=== PATIENT | male | born 1960 | race Caucasian/White ===

== ENCOUNTER 2016-06-26 10:08 | Emergency (ER) | payer OTHER ==
--- NOTE | ~2016-06-26 | CR63 ---
[facility] A Service of [facility] & [facility] RADIOLOGY TEXT RESULTS PATIENT: LUPIS MACHADO LOCATION: [facility] : 64 UNIT #: [id number] AGE: [address]: Victor M Del Rio MD SEX: M ORDER DR: [id number] [facility] [address] [place], [place] [address] [id number] E MR#: [id number] Acc #: [id number] NAME: LUPIS MACHADO : 1960 SEX: M STUDY DATE/TIME: 06/26/2016 10:30 UNIT: [facility] ROOM: STUDY DESCRIPTION: CR Chest 2 View Attending Physician: Victor M Del Rio M.D. Ordering Physician: Victor M Del Rio M.D. Primary Care Physician: [facility] MEDICAL IMAGING REPORT This report is preliminary unless electronic signature is present EXAM 2 views chest 06/26/2016 HISTORY Cough today, fell in shower. Cough, pain in right shoulder, lower back pain. FINDINGS PA and lateral radiographs of the chest are presented. Comparison 04/03/2016. Bony structures unremarkable. Heart and mediastinum normal in size and contour. The lungs are well inflated and clear without evidence of acute infectious or inflammatory disease, pleural effusion or pneumothorax. No suspicious nodule. Calcified granuloma in the left lower lobe unchanged. Dictated by... Mumtaz Park M.D. THIS IS AN ELECTRONICALLY VERIFIED REPORT Mumtaz Park M.D. at 06/27/2016 2:37 PM GERRY/kleber TD: 06/26/2016 12:48 JOB #: [id number] MEDICAL IMAGING REPORT Page 1 of 1 COPY
--- NOTE | ~2016-06-26 | CR181 ---
[facility] A Service of [facility] & [facility] RADIOLOGY TEXT RESULTS PATIENT: LUPIS MACHADO LOCATION: [facility] : 64 UNIT #: [id number] AGE: [address]: Victor M Del Rio MD SEX: M ORDER DR: [id number] [facility] [address] [place], [place] [address] [id number] E MR#: [id number] Acc #: [id number] NAME: LUPIS MACHADO : 1960 SEX: M STUDY DATE/TIME: 06/26/2016 10:29 UNIT: [facility] ROOM: STUDY DESCRIPTION: CR Lumbar Spine 2 or 3 Views Attending Physician: Victor M Del Rio M.D. Ordering Physician: Victor M Del Rio M.D. Primary Care Physician: [facility] MEDICAL IMAGING REPORT This report is preliminary unless electronic signature is present EXAM Lumbar spine series 06/26/2016 HISTORY Cough, pain in right shoulder, lower back pain. Fell in shower. Duration today. Recently quit smoking. FINDINGS AP and two lateral views lumbar spine presented with comparison study 05/15/2010. No indication of traumatic fracture or malalignment. There is a transitional S1 vertebra. Vertebral body heights are normal. Ugnq-rq-[id number] intervertebral disc space narrowing at the L3-L4, L4-L5 levels and moderate to marked intervertebral disc space narrowing L5-S1. These disc degenerative changes have progressed in the interval from 2010. There is a approximately 5 mm degenerative retrolisthesis L5 on S1 more pronounced than in 2010 when it was approximately 3 mm. I believe this is secondary to disc and facet degenerative changes at the L5-S1 level. Moderate facet degenerative changes suggested L5-S1 and at the transitional S1-S2 level. There is stable mild lumbar levoscoliosis. Visualized bony pelvis and thoracic spine show no acute abnormalities. Visualized bowel gas pattern normal. The lung bases clear to visualized extent. Dictated by... Mumtaz Park M.D. THIS IS AN ELECTRONICALLY VERIFIED REPORT Mumtaz Park M.D. at 06/27/2016 2:37 PM GERRY/gallo TD: 06/26/2016 12:47 JOB #: [id number] [facility] A Service of [facility] & [facility] RADIOLOGY TEXT RESULTS PATIENT: LUPIS MACHADO LOCATION: [facility] : 64 UNIT #: [id number] AGE: [address]: Victor M Del Rio MD SEX: M ORDER DR: MEDICAL IMAGING REPORT Page 1 of 1 COPY
--- NOTE | ~2016-06-26 | CR230 ---
[facility] A Service of [facility] & [facility] RADIOLOGY TEXT RESULTS PATIENT: LUPIS MACHADO LOCATION: [facility] : 64 UNIT #: [id number] AGE: [address]: Victor M Del Rio MD SEX: M ORDER DR: [id number] [facility] [address] [place], [place] [address] [id number] E MR#: [id number] Acc #: [id number] NAME: LUPSI MACHADO : 1960 SEX: M STUDY DATE/TIME: 06/26/2016 10:29 UNIT: [facility] ROOM: STUDY DESCRIPTION: CR Shoulder Min 2 View Rt Attending Physician: Victor M Del Rio M.D. Ordering Physician: Victor M Del Rio M.D. Primary Care Physician: [facility] MEDICAL IMAGING REPORT This report is preliminary unless electronic signature is present EXAM Right shoulder series 06/26/2016 HISTORY Trauma. Fell in shower. Pain in right shoulder. Lower back pain. FINDINGS AP internal and external rotation views of the right shoulder are presented with transscapular view. No traumatic fracture of malalignment. The acromioclavicular and glenohumeral joint relationships are normal. The periarticular soft tissues are unremarkable. Visualized bony thorax intact. Visualized pulmonary parenchyma clear. Calcifications superimposed over soft tissues of the right neck paraspinal region, likely carotid arterial calcifications. Consider elective carotid ultrasound for further assessment. Dictated by... Mumtaz Park M.D. THIS IS AN ELECTRONICALLY VERIFIED REPORT Mumtaz Park M.D. at 06/27/2016 2:37 PM GERRY/yoana TD: 06/26/2016 13:02 JOB #: [id number] MEDICAL IMAGING REPORT Page 1 of 1 COPY
[~2016-06-26 10:08] MED LIST: ALBUTEROL 90MCG PO; ALLERCLEAR10 MG PO; AMLODIPINE BESY10 MG PO; ASPIRIN81 MG PO; CLARITIN10 M2 PO; COMBIVENT U/D3 M2 INH; HYDROCHLOROTHIA25 MG PO; HYDROCODON-ACE1 EAC7 PO; HYDROXYZINE HCL25 M1 PO; K-DUR20 ME1 PO; LAMICTAL100 MG PO; LEXAPRO; LISINOPRIL20 MG PO; LITHIUM CARBON300 M1 PO; MELOXICAM15 MG PO; NICODERM C1 PATCH .1 TD; PREDNISONE10 MG PO; PROZAC PO; PROZAC40 MG PO; TRAZODONE; TRAZODONE HCL100 MG PO; TRAZODONE PO; VIAGRA50 MG PO; VICODIN 5/1 TAB 5/50 PO; ZITHROMAX PO
== END 2016-06-26 11:58 | disposition home or self-care (01) ==
LOC: CED 10:08
DX: S39.012A Strain of muscle, fascia and tendon of lower back, initial encounter (principal); S46.911A Strain of unspecified muscle, fascia and tendon at shoulder and upper arm level, right arm, initial encounter; J44.1 Chronic obstructive pulmonary disease with (acute) exacerbation; E11.9 Type 2 diabetes mellitus without complications; I10 Essential (primary) hypertension; F31.9 Bipolar disorder, unspecified; Z86.73 Personal history of transient ischemic attack (TIA), and cerebral infarction without residual deficits; F17.200 Nicotine dependence, unspecified, uncomplicated; Z79.899 Other long term (current) drug therapy; W22.8XXA Striking against or struck by other objects, initial encounter
CPT/HCPCS: 71020; 72100; 73030; 99284

== ENCOUNTER 2016-08-06 22:49 | Observation (INO) | payer SELFPAY ==
--- NOTE | ~2016-08-06 | CR72 ---
[facility] A Service of [facility] & [facility] RADIOLOGY TEXT RESULTS PATIENT: LUPIS MACHADO LOCATION: [facility] 563-01 : 64 UNIT #: [id number] AGE: [address]: RASHAAD VILLA MD SEX: M ORDER DR: [id number] [facility] [address] [place], [place] [address] [id number] I MR#: [id number] Acc #: [id number] NAME: LUPIS MACHADO : 1960 SEX: M STUDY DATE/TIME: 08/06/2016 23:18 UNIT: [facility] ROOM: [facility] STUDY DESCRIPTION: CR Chest Single View Portable Attending Physician: Rashaad Villa M.D. Ordering Physician: Vanessa Norton M.D. Primary Care Physician: [facility] MEDICAL IMAGING REPORT This report is preliminary unless electronic signature is present EXAM Portable chest INDICATIONS Chest pain, shortness of air and cough today. PROCEDURE Frontal view chest. COMPARISON: 06/26/2016 FINDINGS Heart size is within normal limits. No dense consolidation, pleural fluid or pneumothorax. IMPRESSION No active process Dictated by... Jose Palma M.D. THIS IS AN ELECTRONICALLY VERIFIED REPORT Jose Palma M.D. at 08/07/2016 9:55 PM EED/kleber TD: 08/07/2016 08:28 JOB #: [id number] MEDICAL IMAGING REPORT Page 1 of 1 COPY
--- NOTE | ~2016-08-06 | ST ---
Unit #: [id number] #: [id number] Patient: LUPIS MACHADO [id number] [address] [address] [id number] I MR#: [id number] NAME: LUPIS MACHADO : 1960 SEX: M STUDY DATE/TIME: 08/07/2016 UNIT: [facility] ROOM: 563 STUDY DESCRIPTION: Combined EKG and nuclear Attending Physician: Eldon Webb M.D. Primary Care Physician: [facility] CARDIOLOGY REPORT EXAM Combined EKG and nuclear part of test. DESCRIPTION Patient's baseline heart rate is 62 BPM, blood pressure 145/90. The patient received Lexiscan infusion as per protocol. Peak infusion heart rate 76 BPM. Blood pressure 150/86. Patient received Lexiscan infusion per protocol. During infusion recovery, no further ST-T changes. The patient also had 11.88 mCi of Cardiolite at rest and 31.1 mCi of Cardiolite during stress. Both sets of images were compared. Patient shows fairly uniform uptake of radiotracer. No defect was noted. Patient also has gated SPECT scan done, which showed normal LV size and function. No wall motion abnormality detected. Ejection fraction is 60%. INTERPRETATION OF THE TEST 1. EKG part of the test is negative for Lexiscan induced ischemia. 2. Nuclear part of the test negative for myocardial ischemia. 3. Gated SPECT scan shows normal LV size and function. Dictated by... Michaela Rodriguez/lupe TD: 08/07/2016 13:13 JOB #: [id number] CARDIOLOGY REPORT Page 1 of 1 X Eladio De La Rosa MD CARDIOLOGY REPORT
--- NOTE | ~2016-08-06 | CT71 ---
[facility] A Service [facility] RADIOLOGY TEXT RESULTS PATIENT: LUPIS MACHADO LOCATION: [facility] : 64 UNIT #: [id number] AGE: [address]: RASHAAD VILLA MD SEX: M ORDER DR: [id number] [id number] [place], [place] [address] [id number] I MR#: [id number] Acc #: [id number] NAME: LUPIS MACHADO : 1960 SEX: M STUDY DATE/TIME: 08/06/2016 23:56 UNIT: [facility] ROOM: [facility] STUDY DESCRIPTION: CT Head Wo Contrast Attending Physician: Rashaad Villa M.D. Ordering Physician: Vanessa Norton M.D. Primary Care Physician: [facility] MEDICAL IMAGING REPORT This report is preliminary unless electronic signature is present EXAM CT head without contrast INDICATION Confusion tonight. PROCEDURE Unenhanced CT of the head. This CT examination was performed with one or more of the following radiation dose reduction techniques: automatic exposure control, adjustment of mA and/or kV according to patient size, and iterative reconstruction. COMPARISON None. FINDINGS No acute hemorrhage, abnormal mass effect, extraaxial fluid collection or hydrocephalus. No calvarial fracture. No convincing evidence for acute or early subacute large territory infarct. IMPRESSION No acute intracranial findings. Dictated by... Jose Palma M.D. THIS IS AN ELECTRONICALLY VERIFIED REPORT Jose Palma M.D. at 08/07/2016 9:53 PM EED/bj TD: 08/07/2016 08:33 JOB #: [id number] [facility] A Service of [facility] RADIOLOGY TEXT RESULTS PATIENT: LUPIS MACHADO LOCATION: [facility] : 64 UNIT #: [id number] AGE: [address]: RASHAAD VILLA MD SEX: M ORDER DR: MEDICAL IMAGING REPORT Page 1 of 1 COPY
--- NOTE | ~2016-08-06 | EKG ---
PATIENT: LUPIS MACHADO UNIT #: [id number] Ventricular Rate: 66 BPM Atrial Rate: 66 BPM P-R Interval: 194 ms QRS Duration: 86 ms Q-T Interval: 398 ms QTC Calculation(Bezet): 417 ms P [place]: 48 degrees Calculated R [place]: 77 degrees Calculated T [place]: 66 degrees Diagnosis Line: Normal sinus rhythm Diagnosis Line: Normal ECG Diagnosis Line: No previous ECGs available Diagnosis Line: Confirmed by SOLIS BRENNAN MD ([id number]) on Diagnosis Line: 08/07/2016 3:20:22 PM INTERPRETING MD: MIKA WHYTE
--- NOTE | ~2016-08-06 | DS ---
Unit #: [id number] #: [id number] Patient: LUPIS ARMENTA [id number] [address] [address] [id number] I MR#: [id number] NAME: LUPIS ARMENTA ROOM: 563 Age: 56 Sex: M Admission Date: 08/07/2016 : 1960 Discharge Date: 08/07/2016 Attending Physician: Eldon Webb M.D. Primary Care Physician: [facility] DISCHARGE SUMMARY ADMITTING DIAGNOSES 1. Chest pain. 2. Chronic obstructive pulmonary disease. 3. Hypertension. 4. History of transient ischemic attack. 5. Lung nodules monitored. 6. Chronic back pain. DISCHARGE DIAGNOSES 1. Chest pain, presumed noncardiac based on testing. 2. Chronic obstructive pulmonary disease. 3. Hypertension. 4. History of transient ischemic attack. 5. Lung nodules monitored. 6. Chronic back pain. PROCEDURES PERFORMED DURING HOSPITALIZATION 1. Nuclear stress test which is negative for myocardial ischemia. Ejection fraction 60%. 2. CT of the head shows no acute intracranial findings. 3. Chest x-ray shows no active processes and no dense consolidation, pleural fluid or pneumothorax. 4. 2D echocardiogram results are not available to me at this time. HOSPITAL COURSE Mr. Armenta is a 56-year-old male that is known to us from previous admission. Yesterday, he had a sudden onset of heaviness in the middle of his chest which lasted until after he received aspirin and nitroglycerin in the emergency room. He was admitted for observation. He completed a cardiac workup including a Lexiscan Cardiolite stress test which was read as negative per Dr. De La Rosa. He will be discharged home with outpatient follow up. He has not had any recurrent chest pain and currently is feeling very well and ready for discharge. PERTINENT LABS DURING HOSPITALIZATION Troponin less than 0.0 x2 and previous at point of care less than 0.05 x2. Sodium 139, potassium 4.5, glucose 87, BUN 13, creatinine 1.3, cholesterol 154, triglycerides 89, LDL 104 and HDL 32. Hemoglobin 13.1, hematocrit 40.2, platelets 264, white blood cell count 7.3. BNP of 14, PTT 10.1, INR 1.0. DISCHARGE MEDICATIONS They include the followin. Albuterol/Combivent inhaler, two puffs inhalation q.6 hours. Unit #: [id number] #: [id number] Patient: LUPIS ARMENTA 2. Flomax 0.4 mg daily. 3. Spiriva one inhalation daily. 4. Lamictal 100 mg daily. 5. Prozac 40 mg daily. 6. Trazodone two tablets q. h.s. 7. Hydroxyzine 25 mg t.i.d. as needed for anxiety. 8. Nicotine gum q.1 hours p.r.n. 9. Lasix 40 mg daily. 10. Prinivil 20 mg daily. 11. Aspirin 81 mg daily. 12. Hydrocodone/acetaminophen 5/300, one tab q.4 hours p.r.n. pain. 13. Potassium 10 mEq daily. 14. Flexeril, one tablet t.i.d. p.r.n. muscle spasm. Of note - no changes to his medications have been completed during this hospitalization. DISCHARGE INSTRUCTIONS Diet - regular, low salt diet. Activity - as tolerated. Follow up visit will be with Dr. Eladio De La Rosa in the next two to four weeks. We have also recommended that he follow up with his primary care physician for noncardiac chest pain. Of note, he also has right foot pain with walking. He states that it sometimes improves with movement. However, today on the treadmill, he was unable to complete the treadmill stress test and had to be changed to Lexiscan due to this right foot pain. I suggested that he may need to see a director of surgery and primary care regarding this in the near future. Dictated by... Melodie Cummings A.P.R.N. for Michaela Rodriguez/sadaf TD: 08/08/2016 11:46 JOB #: [id number] DISCHARGE SUMMARY Page 1 of 1 X X DISCHARGE SUMMARY
--- NOTE | ~2016-08-06 | HP ---
Unit #: [id number] #: [id number] Patient: LUPIS ARMENTA [id number] [facility] [address] [place], [place] [address] [id number] I MR#: [id number] NAME: LUPIS ARMENTA ROOM: 563 Age: 56 Sex: M Admission Date: 08/07/2016 : 1960 Attending Physician: Eldon Webb M.D. Primary Care Physician: Gregoria Mcgowan [facility] HISTORY AND PHYSICAL CHIEF COMPLAINT Chest pain. HISTORY OF PRESENT ILLNESS Mr. Armenta is a 56-year-old recovering alcoholic who is living in a penitentiary house. He as cleaning his room and making his bed when he developed a sudden onset of heavy pressure in the center of his chest yesterday. He states it felt like an elephant hit the middle of his chest and he was slightly incoherent and stuttering for a short period of time. He was able to call 911. Before EMS arrived his head had cleared and the pain lasted until he got to the emergency room at [facility]. He actually received aspirin and nitroglycerin upon arrival at approximately 11 o'clock last night. He has been chest pain free since. This information was received from the patient interview as well as from record review. PRIOR CARDIAC TESTING HISTORY 1. In 03/2023 he had a stress test that showed no ischemia, with an ejection fraction of 57%. 2. Echocardiogram showed no wall motion abnormities and an ejection fraction of 55%. PAST MEDICAL HISTORY 1. Hypertension. 2. Chronic obstructive pulmonary disease. 3. Lung nodules that are just being watched. 4. Borderline diabetes. 5. TIA. 6. Depression and anxiety. 7. Chronic back pain. 8. BPH. SOCIAL HISTORY The patient smokes less than a half pack a day and is trying to quit. He started smoking at age 28. 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 He denies the use of drugs. FAMILY HISTORY Mother is alive with Crohn disease and thyroid problems. Father also has had several stents placed in his heart and is on high blood pressure medicine and blood thinners. He has a sister who with pancreatic cancer and another sister with stomach problems. Unit #: [id number] #: [id number] Patient: LUPIS ARMENTA ALLERGIES No known drug allergies. HOME MEDICATIONS 1. Combivent 2 puffs inhalation q.6 h. 2. Flexeril 1 tablet t.i.d. p.r.n. 3. Hydrocodone 1 tablet q.4 h. p.r.n. 4. Lasix 40 mg daily. 5. Nicotine gum hourly p.r.n. 6. Potassium 10 mEq daily. 7. Aspirin 81 mg daily. 8. Spiriva 1 inhalation daily. 9. Flomax 0.4 mg daily. 10. Prozac 40 mg daily. 11. Lamictal 100 mg daily. 12. Trazodone 2 tablets at nighttime. 13. Hydroxyzine 25 mg t.i.d. p.r.n. anxiety. 14. Also he has prescribed lisinopril 20 mg daily which he states that he does not take. REVIEW OF SYSTEMS GENERAL: Denies any fever, chills, flu-like symptoms, but does have yo-yoing weight. SKIN: Denies any rashes, ulcerations or wounds. HEADACHE: Denies increasing headaches. EYES: Denies any sudden change in vision. EARS: Denies any sudden change in hearing. HEMATOLOGIC: Denies epistaxis, hemoptysis, hematuria, or melena. THROAT: Denies any problem swallowing. LUNGS: Positive for wheeze, cough and shortness of breath over the last few days. CHEST: Positive for chest pain as described in history of present illness. No palpitations, tachycardia, PND or orthopnea. GI: Occasional nausea, but no vomiting, diarrhea, constipation or change in stools. GENITOURINARY: Denies any burning or urgency. EXTREMITIES: He states that he does have bilateral lower extremity swelling, usually worse in the p.m. and better in the a.m. SPINE: He has chronic back pain, but no scoliosis. NEURO: Numbness and tingling of the left arm yesterday with severe chest discomfort, which has since resolved. No seizures, stroke-like symptoms, dizziness, unsteadiness or falls. PHYSICAL EXAMINATION GENERAL: Well-developed, well-nourished white male in no acute distress, resting in the bed. VITALS: Blood pressure 133/77, heart rate 54, respiratory rate 18, temperature 97.5, 190 pounds, 98% oxygenated on room air. SKIN: No obvious rashes or ulcerations noted. HEENT: Eyes, pupils equally round and reactive to light and accommodation. No xanthelasma. Oral, poor dentition. Moist mucous membranes. No pallor. NECK: No carotid bruits auscultated bilaterally. SPINE: No scoliosis. CHEST: Clear to auscultation bilaterally. No wheezes, rales or rhonchi. HEART: S1 and S2. No murmur, rub, gallop or lift. ABDOMEN: Soft and nontender. Positive bowel sounds. EXTREMITIES: Bilateral pedal pulses +1. No edema. Unit #: [id number] #: [id number] Patient: LUPIS ARMENTA NEUROLOGIC: Alert and oriented times three. Speech is clear. No obvious neurologic deficits. DIAGNOSTIC STUDIES LABORATORY: Troponin less than 0.03 times 2 and less than 0.05 times 2 at point of care. Sodium 139, potassium 4.5, glucose 87, BUN 13, creatinine 1.2, cholesterol 154, triglycerides 89, LDL 104, HDL 32, hemoglobin 13.1, hematocrit 40.2, platelets 264, white blood cell count 7.3. BNP 14. PT 10.1, INR 1.0. CARDIOVASCULAR: EKG showed normal sinus rhythm, otherwise normal. ASSESSMENT 1. Chest pain. 2. Chronic obstructive pulmonary disease. 3. Hypertension. 4. History of TIA. 5. Lung nodules that are being monitored. 6. Chronic back pain. PLAN We will complete a Cardiolite stress test which is already in progress, as well as two-dimensional echocardiogram and make further recommendations. Dr. De La Rosa evaluated at the bedside. Dictated by Melodie Cummings A.P.R.N. for Eladio De La Rosa M.D. Humza TD: 08/07/2016 15:00 JOB #: [id number] HISTORY AND PHYSICAL Page 1 of 1 X X HISTORY AND PHYSICAL
[2016-08-06 23:37] LABS: BASOPHIL# 0.1 X10e3 (0-0.3); BASOPHIL% 0.8 % (0-2.5); DIFF IND NO; EOSINOPHIL# 0.4 X10e3 (0-0.7); EOSINOPHIL% 4.4 % (0.0-7.0); HEMATOCRIT 39.8 % (38.0-50.0); HEMOGLOBIN 13.1 gm/dL (13.0-16.0); LYMPHOCYTE# 2.6 X10e3 (1.0-3.5); LYMPHOCYTE% 30.3 % (17.0-45.0); MEAN CELL VOLUME 87.4 FL (83-96); MEAN CORPUSCULAR HEMOGLOBIN 28.7 PG (28-34); MEAN CORPUSCULAR HGB CONC 32.8 g/dL (30-36); MONOCYTE# 0.7 X10e3 (0-1.0); MONOCYTE% 7.9 % (3.0-12.0); NEUTROPHIL# 4.8 X10e3 (1.5-7.1); NEUTROPHIL% 56.6 % (40-75); PLATELET COUNT 264 X10e3 (140-420); RED BLOOD COUNT 4.56 X10e (3.90-5.60); RED CELL DISTRIBUTION WIDTH 15.2 % (11.0-15.5); WHITE BLOOD COUNT 8.5 X10e3 (4.0-10.5)
[2016-08-06 23:44] LABS: POC - CKMB 1.5 ng/mL (0.0-7.9); POC - TROPONIN <0.05 ng/mL (<=0.05)
[2016-08-06 23:52] LABS: PARTIAL THROMBOPLASTIN TIME 28.7 SECONDS (23.5-31.3); PROTHROMBIN TIME (PATIENT) 10.1 SECONDS (9.6-11.5)
[2016-08-07 00:04] LABS: ALBUMIN SERUM 4.1 g/dL (3.5-5.0); BILIRUBIN, DIRECT 0.1 mg/dL (0.0-0.2); BILIRUBIN,INDIRECT 0.4 mg/dL (0.0-0.9); BILIRUBIN,TOTAL 0.5 mg/dL (0.2-2.0); BUN/CREATININE RATIO 11.81; CALCIUM SERUM 9.2 mg/dL (8.4-10.2); CREATININE SERUM 1.1 mg/dL (0.6-1.4); GLOM FILT RATE Estimated 75.7 mL/min (>60); POTASSIUM 3.8 mmol/L (3.5-5.1); PROTEIN TOTAL SERUM 7.1 g/dL (6.0-8.3)
[2016-08-07 01:29] LABS: POC - CKMB 1.4 ng/mL (0.0-7.9); POC - TROPONIN <0.05 ng/mL (<=0.05)
[2016-08-07] MEDS ORDERED: FLEXERIL10 MG PO (05:11)
[2016-08-07] MEDS ORDERED: HYDROCODON-ACE1 EA13 PO (05:12)
[2016-08-07] MEDS ORDERED: FUROSEMIDE40 MG PO (05:12)
[2016-08-07] MEDS ORDERED: NICOTINE GUM2 M1 PO (05:14)
[2016-08-07] MEDS ORDERED: BAYER CHEWABLE81 MG PO (05:15)
[2016-08-07] MEDS ORDERED: K-DUR10 MEQ PO (05:15)
[2016-08-07] MEDS ORDERED: SPIRIVA18 MCG PO (05:16)
[2016-08-07] MEDS ORDERED: PRINIVIL20 M1 PO (05:16)
[2016-08-07] MEDS ORDERED: FLOMAX0.4 M1 PO (05:17)
[2016-08-07] MEDS ORDERED: PROZAC40 M1 PO (05:17)
[2016-08-07] MEDS ORDERED: LAMICTAL100 MG PO (05:18)
[2016-08-07] MEDS ORDERED: TRAZODONE HCL100 MG PO (05:20)
[2016-08-07] MEDS ORDERED: HYDROXYZINE HCL25 M1 PO (05:23)
[2016-08-07 08:05] LABS: BASOPHIL# 0.1 X10e3 (0-0.3); BASOPHIL% 0.9 % (0-2.5); EOSINOPHIL# 0.4 X10e3 (0-0.7); EOSINOPHIL% 5.8 % (0.0-7.0); HEMATOCRIT 40.2 % (38.0-50.0); HEMOGLOBIN 13.1 gm/dL (13.0-16.0); LYMPHOCYTE# 2.4 X10e3 (1.0-3.5); LYMPHOCYTE% 32.4 % (17.0-45.0); MEAN CELL VOLUME 87.6 FL (83-96); MEAN CORPUSCULAR HEMOGLOBIN 28.6 PG (28-34); MEAN CORPUSCULAR HGB CONC 32.6 g/dL (30-36); MEAN PLATELET VOLUME 7.7 FL (6.5-11.5); MONOCYTE# 0.6 X10e3 (0-1.0); MONOCYTE% 8.4 % (3.0-12.0); NEUTROPHIL# 3.9 X10e3 (1.5-7.1); NEUTROPHIL% 52.5 % (40-75); PLATELET COUNT 264 X10e3 (140-420); RED BLOOD COUNT 4.59 X10e (3.90-5.60); RED CELL DISTRIBUTION WIDTH 14.9 % (11.0-15.5); WHITE BLOOD COUNT 7.3 X10e3 (4.0-10.5)
[2016-08-07 08:08] LABS: DIFF IND NO
[2016-08-07 08:50] LABS: %MB 1.5 % (0.0-4.0)
[2016-08-07 09:38] LABS: BUN/CREATININE RATIO 10.83; CALCIUM SERUM 9.1 mg/dL (8.4-10.2); CREATININE SERUM 1.2 mg/dL (0.6-1.4); GLOM FILT RATE Estimated 68.2 mL/min (>60); POTASSIUM 4.5 mmol/L (3.5-5.1)
[2016-08-07 14:13] LABS: %MB 1.5 % (0.0-4.0); MB 2.1 ng/ml
== END 2016-08-07 18:31 | disposition home or self-care (01) | DRG 313 ==
LOC: CED 22:49 → C5C 08-07 02:05 → CEDOF 08-07 02:05 → C5C 08-07 03:23
PROVIDERS: Emergency Medicine; Internal Medicine Interventional Cardiology
DX: R07.89 Other chest pain (principal); J44.9 Chronic obstructive pulmonary disease, unspecified; I10 Essential (primary) hypertension; Z86.73 Personal history of transient ischemic attack (TIA), and cerebral infarction without residual deficits; R91.8 Other nonspecific abnormal finding of lung field; M54.9 Dorsalgia, unspecified; G89.29 Other chronic pain; F17.200 Nicotine dependence, unspecified, uncomplicated; Z79.82 Long term (current) use of aspirin; Z82.49 Family history of ischemic heart disease and other diseases of the circulatory system
CPT/HCPCS: 36415; 70450; 71010; 78452; 80048; 80061; 80076; 82550; 82553; 83690; 83880; 84484; 85025; 85610; 85730; 93005; 93017; 93306; 99285; A9500; G0378; J2785

== ENCOUNTER 2016-09-22 21:42 | Emergency (ER) | payer OTHER ==
[~2016-09-22] VITALS: Ht 185.4 cm; Wt 86.2 kg
--- NOTE | ~2016-09-22 | CT99 ---
[facility] A Service [facility] RADIOLOGY TEXT RESULTS PATIENT: LUPIS MACHADO LOCATION: [facility] : 64 UNIT #: [id number] AGE: [address]: Julianne Hollis APRN SEX: M ORDER DR: [id number] [facility] [address] [place] [address] [place], [place] [address] [id number] E MR#: [id number] Acc #: [id number] NAME: LUPIS MACHADO : 1960 SEX: M STUDY DATE/TIME: 09/23/2016 0:50 UNIT: [facility] ROOM: STUDY DESCRIPTION: CT Maxillofacial Area W Cont Attending Physician: Julianne Hollis A.P.R.N. Ordering Physician: Julianne Hollis A.P.R.N. MEDICAL IMAGING REPORT This report is preliminary unless electronic signature is present EXAM CT of the maxillofacial region with contrast INDICATIONS Nose pain and swelling and redness for the past 2 hours tonight. TECHNIQUE Contrast-enhanced CT of the maxillofacial region. This CT exam was performed with one or more of the following radiation dose reduction techniques: automatic exposure control, adjustment of mA and/or kV according to patient size, and iterative reconstruction. COMPARISON None. FINDINGS Mild asymmetric skin thickening and induration of the subcutaneous fat along the left side of the face. No drainable fluid collection. No acute facial bone fracture or aggressive appearing bone change. IMPRESSION Mild skin thickening and induration in the left side of the face but no drainable fluid collection to suggest an abscess. Dictated by... Jose Palma M.D. THIS IS AN ELECTRONICALLY VERIFIED REPORT Jose Palma M.D. at 09/23/2016 10:22 PM EED/pcl [facility] A Service [facility] RADIOLOGY TEXT RESULTS PATIENT: LUPIS MACHADO LOCATION: [place] : 64 UNIT #: [id number] AGE: [address]: Julianne Hollis APRN SEX: M ORDER DR: TD: 09/23/2016 09:02 JOB #: [id number] MEDICAL IMAGING REPORT Page 1 of 1 COPY
[~2016-09-22 21:42] MED LIST changes: +BAYER CHEWABLE81 MG PO; +FLEXERIL10 MG PO; +FLOMAX0.4 M1 PO; +FUROSEMIDE40 MG PO; +HYDROCODON-ACE1 EA13 PO; +K-DUR10 MEQ PO; +NICOTINE GUM2 M1 PO; +PRINIVIL20 M1 PO; +PROZAC40 M1 PO; +SPIRIVA18 MCG PO
[2016-09-22 23:54] LABS: BASOPHIL% 0.4 % (0-2.5); EOSINOPHIL# 0.2 X10e3 (0-0.7); EOSINOPHIL% 1.9 % (0.0-7.0); HEMATOCRIT 38.6 % (38.0-50.0); HEMOGLOBIN 12.7 gm/dL (13.0-16.0); LYMPHOCYTE# 2.2 X10e3 (1.0-3.5); LYMPHOCYTE% 22.1 % (17.0-45.0); MEAN CELL VOLUME 87.7 FL (83-96); MEAN CORPUSCULAR HEMOGLOBIN 28.8 PG (28-34); MEAN CORPUSCULAR HGB CONC 32.9 g/dL (30-36); MEAN PLATELET VOLUME 8.3 FL (6.5-11.5); MONOCYTE# 0.6 X10e3 (0-1.0); MONOCYTE% 6.3 % (3.0-12.0); NEUTROPHIL# 6.8 X10e3 (1.5-7.1); NEUTROPHIL% 69.3 % (40-75); PLATELET COUNT 256 X10e3 (140-420); RED CELL DISTRIBUTION WIDTH 14.4 % (11.0-15.5); WHITE BLOOD COUNT 9.8 X10e3 (4.0-10.5)
[2016-09-22 23:58] LABS: DIFF IND NO
[2016-09-23 00:19] LABS: BUN/CREATININE RATIO 15.45; CALCIUM SERUM 8.9 mg/dL (8.4-10.2); CREATININE SERUM 1.1 mg/dL (0.6-1.4); GLOM FILT RATE Estimated 75.7 mL/min (>60); POTASSIUM 4.1 mmol/L (3.5-5.1)
== END 2016-09-23 01:57 | disposition home or self-care (01) ==
LOC: CED 21:42 → CFTX 21:42
PROVIDERS: Nurse Practitioner
DX: L03.211 Cellulitis of face (principal); I10 Essential (primary) hypertension; E11.9 Type 2 diabetes mellitus without complications; J44.9 Chronic obstructive pulmonary disease, unspecified; I25.2 Old myocardial infarction; F17.210 Nicotine dependence, cigarettes, uncomplicated
CPT/HCPCS: 36415; 70487; 80048; 82947; 85025; 99284; Q9967